=== PATIENT | male | born 1980 | race Caucasian/White ===

== ENCOUNTER 2021-03-27 11:51 | Inpatient (IN) | payer SELFPAY ==
[~2021-03-27] VITALS: Ht 182.9 cm; Wt 134.7 kg
[~2021-03-27 11:51] MED LIST: HUMULIN-R100 UNITS/ SQ; NOVOLIN 70100 UNITS/ SC; NOVOLIN N100 UNIT/1 SQ
[2021-03-27] MEDS ORDERED: SODIUM CHLORIDE 0.9% 1000ML 1,000 ML IV STA (12:23)
[2021-03-27 12:34] LABS: BASOPHILS # (AUTO) 0.1 (0.0-0.1); BASOPHILS % 0.5 % (0.0-1.0); EOSINOPHILS # (AUTO) 0.2 (0.0-0.4); HEMATOCRIT 44.1 % (38.2-49.6); HEMOGLOBIN 14.1 g/dL (14.0-18.0); LYMPHOCYTES # (AUTO) 1.7 (1.0-3.2); LYMPHOCYTES % 16.3 % (18.0-39.1); MEAN CORPUSCULAR HEMOGLOBIN 26.5 pg (28-32); MEAN CORPUSCULAR VOLUME 82.9 fL (81-99); MONOCYTES # (AUTO) 0.6 (0.2-0.8); NEUTROPHILS # (AUTO) 7.9 (2.1-6.9); NEUTROPHILS % 74.4 % (38.7-80.0); PLATELET COUNT 280 x10e3/uL (140-360); RED BLOOD COUNT 5.32 x10e6/uL (4.3-5.7); RED CELL DISTRIBUTION WIDTH 14.7 % (11.7-14.4)
[2021-03-27 12:58] LABS: ALBUMIN 3.3 g/dL (3.5-5.0); ALBUMIN/GLOBULIN RATIO 0.7 (0.8-2.0); ANION GAP 18.3 mmol/L (8-16); CALCIUM 8.9 mg/dL (8.4-10.2); CREATININE, SERUM 1.02 mg/dL (0.72-1.25); POTASSIUM 4.3 mmol/L (3.5-5.1)
[2021-03-27] MEDS ORDERED: PIPERACILLIN/TAZOBACTAM 3.375 GM in SODIUM CHLORIDE 0.9% 50ML 50 ML IV ONE (13:30)
[2021-03-27] MEDS ORDERED: Vancomycin IV 1 GM in SODIUM CHLORIDE 0.9% 250ML 250 ML IV ONE (13:45)
[2021-03-27 13:51] LABS: CLARITY,URINE CLEAR (CLEAR); COLOR,URINE YELLOW (YELLOW); KETONES,URINE 1+ (NEGATIVE); LEUKOCYTE ESTERASE ,URINE NEGATIVE (NEGATIVE); NITRITE,URINE NEGATIVE (NEGATIVE); PROTEIN,URINE DIPSTICK >=300 (NEGATIVE); URINE UROBILINOGEN 1 mg/dL (0.2 - 1)
[2021-03-27 14:04] LABS: BACTERIA,URINE RARE /HPF; RBC,URINE 0-5 /HPF (0-5)
[2021-03-27] MEDS ORDERED: MORPHINE SULFATE INJ 2 MG/ML SYR IV PRN (14:15)
[2021-03-27] MEDS ORDERED: ONDANSETRON HCL INJ 2MG/ML 2ML 2 MG/ML VIAL IV PRN (14:15)
[2021-03-27] MEDS: MORPHINE SULFATE INJ 4 MG/ML INJ 1ML IV PRN ×3 (14:41→23:12)
[2021-03-27] MEDS: SODIUM CHLORIDE 0.9% 1000ML 1,000 ML IV SCH ×2 (14:45→18:45)
[2021-03-27 16:53] VITALS: BP 141/77
[2021-03-27 17:15] VITALS: BP 141/77
[2021-03-27] MEDS ORDERED: METFORMIN HCL500 MG PO (18:11)
[2021-03-27] MEDS ORDERED: GLIPIZIDE5 MG PO (18:11)
[2021-03-27] MEDS ORDERED: ALPRAZOLAM0.5 MG PO (18:11)
[2021-03-27] MEDS ORDERED: NOVOLOG MI100 UNIT/1 SC (18:11)
[2021-03-27] MEDS ORDERED: DEXTROSE 50% SYRINGE 50 ML IV PRN (19:00)
[2021-03-27 20:00] VITALS: BP 129/80
[2021-03-27] MEDS ORDERED: ALPRAZOLAM 0.5 MG TAB PO SCH (21:00)
[2021-03-27] MEDS: PIPERACILLIN/TAZOBACTAM 3.375 GM in SODIUM CHLORIDE 0.9% 50ML 50 ML IV SCH (21:21)
[2021-03-27] MEDS ORDERED: Vancomycin IV 1 GM VIAL ONE (21:24)
[2021-03-27 21:52] VITALS: BP 129/80
[2021-03-27] MEDS: INSULIN LISPRO 100 UNIT/1 ML 3ML VIAL SQ SCH (22:01)
[2021-03-27] MEDS: Vancomycin IV 1 GM in SODIUM CHLORIDE 0.9% 250ML 250 ML IV SCH (22:12)
[2021-03-28] VITALS (7 sets, daily range): BP systolic 127–154; BP diastolic 76–85
[2021-03-28] MEDS: PIPERACILLIN/TAZOBACTAM 3.375 GM in SODIUM CHLORIDE 0.9% 50ML 50 ML IV SCH ×4 (03:34→22:05)
[2021-03-28] MEDS: MORPHINE SULFATE INJ 4 MG/ML INJ 1ML IV PRN ×5 (04:15→20:24)
[2021-03-28 04:57] LABS: BASOPHILS % 0.4 % (0.0-1.0); EOSINOPHILS # (AUTO) 0.2 (0.0-0.4); EOSINOPHILS % 2.1 % (0.0-6.0); HEMATOCRIT 37.9 % (38.2-49.6); HEMOGLOBIN 12.1 g/dL (14.0-18.0); LYMPHOCYTES # (AUTO) 2.3 (1.0-3.2); LYMPHOCYTES % 24.8 % (18.0-39.1); MEAN CORPUSCULAR HEMOGLOBIN 26.8 pg (28-32); MEAN CORPUSCULAR HGB CONC 31.9 g/dL (31-35); MONOCYTES # (AUTO) 0.6 (0.2-0.8); NEUTROPHILS % 65.3 % (38.7-80.0); PLATELET COUNT 246 x10e3/uL (140-360); RED BLOOD COUNT 4.51 x10e6/uL (4.3-5.7); RED CELL DISTRIBUTION WIDTH 14.6 % (11.7-14.4)
[2021-03-28 05:25] LABS: ALBUMIN 2.8 g/dL (3.5-5.0); ALBUMIN/GLOBULIN RATIO 0.8 (0.8-2.0); ANION GAP 15.2 mmol/L (8-16); CALCIUM 7.8 mg/dL (8.4-10.2); CREATININE, SERUM 0.87 mg/dL (0.72-1.25); POTASSIUM 4.2 mmol/L (3.5-5.1)
[2021-03-28] MEDS: INSULIN LISPRO 100 UNIT/1 ML 3ML VIAL SQ SCH ×4 (07:30→21:08)
[2021-03-28] MEDS: INSULIN ASPART 70/30 100 UNITS/ML VIAL SC SCH ×2 (07:30→16:35)
[2021-03-28] MEDS: SODIUM CHLORIDE 0.9% 1000ML 1,000 ML IV SCH ×2 (08:23→22:10)
[2021-03-28] MEDS ORDERED: ALPRAZOLAM 0.5 MG TAB PO SCH (09:00)
[2021-03-28] MEDS: Vancomycin IV 1 GM in SODIUM CHLORIDE 0.9% 250ML 250 ML IV SCH ×2 (10:00→23:18)
[2021-03-28] MEDS ORDERED: ONDANSETRON HCL INJ 2MG/ML 2ML 2 MG/ML VIAL ONE (13:04)
[2021-03-28] MEDS ORDERED: DEXAMETHASONE SOD PHOS INJ 4 MG/ML VIAL ONE (13:04)
[2021-03-28] MEDS ORDERED: LIDOCAINE HCL 2% LOCAL INJ 5 ML SDV VIAL INJ ONE (13:04)
[2021-03-28] MEDS ORDERED: PROPOFOL IV EMULSION 10 MG/ML 20 ML VIAL ONE (13:04)
[2021-03-28] MEDS ORDERED: POVIDONE IODINE 0.05% 0.05 % ML PO ONE (13:04)
[2021-03-28] MEDS ORDERED: SEVOFLURANE INHAL SOLN 250 ML PEN BTL ONE (13:04)
[2021-03-28] MEDS ORDERED: KETOROLAC TROMETHAMINE 30 MG/ML VIAL ONE (13:15)
[2021-03-28] MEDS ORDERED: FENTANYL CITRATE/PF 100MCG/2 ML INJ ONE (13:59)
[2021-03-28] MEDS ORDERED: MIDAZOLAM HCL 2 MG/2 ML VIAL ONE (13:59)
[2021-03-28] MEDS: BACITRACIN ZINC 15 GM OINT TOP SCH (17:49)
[2021-03-28] MEDS ORDERED: DEXTROSE 50% SYRINGE 50 ML IV PRN (20:00)
[2021-03-28] MEDS: ALPRAZOLAM 0.5 MG TAB PO SCH (22:07)
[2021-03-29] VITALS (7 sets, daily range): BP systolic 128–157; BP diastolic 69–88
[2021-03-29] MEDS: PIPERACILLIN/TAZOBACTAM 3.375 GM in SODIUM CHLORIDE 0.9% 50ML 50 ML IV SCH ×4 (02:29→19:58)
[2021-03-29] MEDS: MORPHINE SULFATE INJ 4 MG/ML INJ 1ML IV PRN ×4 (02:34→18:12)
[2021-03-29 05:42] LABS: BASOPHILS % 0.2 % (0.0-1.0); EOSINOPHILS # (AUTO) 0.1 (0.0-0.4); EOSINOPHILS % 0.4 % (0.0-6.0); HEMOGLOBIN 12.4 g/dL (14.0-18.0); LYMPHOCYTES # (AUTO) 1.5 (1.0-3.2); LYMPHOCYTES % 12.4 % (18.0-39.1); MEAN CORPUSCULAR HEMOGLOBIN 26.3 pg (28-32); MEAN CORPUSCULAR HGB CONC 31.8 g/dL (31-35); MEAN CORPUSCULAR VOLUME 82.6 fL (81-99); MONOCYTES # (AUTO) 0.7 (0.2-0.8); MONOCYTES % 5.8 % (4.4-11.3); NEUTROPHILS # (AUTO) 9.6 (2.1-6.9); NEUTROPHILS % 80.4 % (38.7-80.0); PLATELET COUNT 247 x10e3/uL (140-360); RED BLOOD COUNT 4.72 x10e6/uL (4.3-5.7); RED CELL DISTRIBUTION WIDTH 14.1 % (11.7-14.4)
[2021-03-29 06:07] LABS: ANION GAP 16.1 mmol/L (8-16); CALCIUM 7.8 mg/dL (8.4-10.2); CREATININE, SERUM 1.01 mg/dL (0.72-1.25); POTASSIUM 4.1 mmol/L (3.5-5.1)
[2021-03-29] MEDS: SODIUM CHLORIDE 0.9% 1000ML 1,000 ML IV SCH ×4 (06:15→22:15)
[2021-03-29] MEDS: METFORMIN HCL 500 MG TAB PO SCH ×2 (08:16→16:37)
[2021-03-29] MEDS: GLIPIZIDE 5 MG TAB PO SCH ×2 (08:17→16:37)
[2021-03-29] MEDS: INSULIN ASPART 70/30 100 UNITS/ML VIAL SC SCH ×2 (08:20→16:38)
[2021-03-29] MEDS: INSULIN LISPRO 100 UNIT/1 ML 3ML VIAL SQ SCH ×4 (08:20→20:41)
[2021-03-29] MEDS: BACITRACIN ZINC 15 GM OINT TOP SCH (08:21)
[2021-03-29] MEDS: ALPRAZOLAM 0.5 MG TAB PO SCH ×3 (08:21→22:31)
[2021-03-29] MEDS: Vancomycin IV 1 GM in SODIUM CHLORIDE 0.9% 250ML 250 ML IV SCH ×2 (11:06→22:31)
[2021-03-29] MEDS ORDERED: ONDANSETRON HCL 4 MG ORAL DISINTEGRATING TAB PO PRN (12:45)
[2021-03-29] MEDS ORDERED: CLEOCIN HCL300 MG PO (14:17)
[2021-03-30] VITALS: BP 151/86
[2021-03-30] MEDS: PIPERACILLIN/TAZOBACTAM 3.375 GM in SODIUM CHLORIDE 0.9% 50ML 50 ML IV SCH ×2 (01:17→09:05)
[2021-03-30] MEDS: MORPHINE SULFATE INJ 4 MG/ML INJ 1ML IV PRN ×2 (03:11→09:21)
[2021-03-30 04:00] VITALS: BP 131/83
[2021-03-30] MEDS: SODIUM CHLORIDE 0.9% 1000ML 1,000 ML IV SCH (04:57)
[2021-03-30] MEDS: INSULIN ASPART 70/30 100 UNITS/ML VIAL SC SCH (07:30)
[2021-03-30] MEDS: INSULIN LISPRO 100 UNIT/1 ML 3ML VIAL SQ SCH ×2 (07:30→11:30)
[2021-03-30 08:05] VITALS: BP 134/77
[2021-03-30 08:23] VITALS: BP 134/77
[2021-03-30] MEDS: METFORMIN HCL 500 MG TAB PO SCH (09:04)
[2021-03-30] MEDS: GLIPIZIDE 5 MG TAB PO SCH (09:05)
[2021-03-30] MEDS: BACITRACIN ZINC 15 GM OINT TOP SCH (09:05)
[2021-03-30] MEDS: Vancomycin IV 1 GM in SODIUM CHLORIDE 0.9% 250ML 250 ML IV SCH (10:08)
[2021-03-30 11:27] VITALS: BP 137/81
== END 2021-03-30 13:00 | disposition home or self-care (01) | DRG 581 ==
LOC: ER 12:53 → ERHOLD 14:01 → MED/SURG2 16:36
PROVIDERS: ADMIT Internal Medicine; ATTEND Internal Medicine
PROC: 0Y960ZZ Drainage of Left Inguinal Region, Open Approach (ICD-10-PCS; principal; 2021-03-28 12:03)
DX: L02.214 Cutaneous abscess of groin (principal); Z20.822 Contact with and (suspected) exposure to COVID-19; E11.22 Type 2 diabetes mellitus with diabetic chronic kidney disease; I12.9 Hypertensive chronic kidney disease with stage 1 through stage 4 chronic kidney disease, or unspecified chronic kidney disease; N18.30 Chronic kidney disease, stage 3 unspecified; Z79.899 Other long term (current) drug therapy; G47.33 Obstructive sleep apnea (adult) (pediatric)
CPT/HCPCS: 36415; 80048; 80053; 80202; 81001; 82948; 85025; 87040; 87071; 87075; 87086; 87205; 96372; 99251; 99284; J1100; J1815; J1885; J2001; J2250; J2270; J2405; J2543; J3010; J3370; J7030; J7050; U0002

== ENCOUNTER 2021-04-22 19:29 | Emergency (ER) | payer SELFPAY ==
[~2021-04-22] VITALS: Ht 182.9 cm; Wt 134.7 kg
[~2021-04-22 19:29] MED LIST changes: +ALPRAZOLAM0.5 MG PO; +CLEOCIN HCL300 MG PO; +GLIPIZIDE5 MG PO; +METFORMIN HCL500 MG PO; +NOVOLOG MI100 UNIT/1 SC
[2021-04-22] MEDS ORDERED: KETOROLAC TROMETHAMINE 30 MG/ML VIAL IV STA (20:56)
[2021-04-22] MEDS ORDERED: ACETAMINOPHEN 325 MG TAB PO ONE (21:00)
[2021-04-22] MEDS ORDERED: SODIUM CHLORIDE 0.9% 1000ML 1,000 ML IV SCH (21:00)
[2021-04-22 21:09] LABS: BASOPHILS % 0.4 % (0.0-1.0); EOSINOPHILS # (AUTO) 0.1 (0.0-0.4); EOSINOPHILS % 1.2 % (0.0-6.0); HEMATOCRIT 46.8 % (38.2-49.6); HEMOGLOBIN 14.9 g/dL (14.0-18.0); LYMPHOCYTES # (AUTO) 0.6 (1.0-3.2); LYMPHOCYTES % 6.5 % (18.0-39.1); MEAN CORPUSCULAR HEMOGLOBIN 26.3 pg (28-32); MEAN CORPUSCULAR HGB CONC 31.8 g/dL (31-35); MEAN CORPUSCULAR VOLUME 82.5 fL (81-99); MONOCYTES # (AUTO) 0.7 (0.2-0.8); MONOCYTES % 7.9 % (4.4-11.3); NEUTROPHILS # (AUTO) 7.7 (2.1-6.9); NEUTROPHILS % 83.5 % (38.7-80.0); PLATELET COUNT 246 x10e3/uL (140-360); RED BLOOD COUNT 5.67 x10e6/uL (4.3-5.7); RED CELL DISTRIBUTION WIDTH 14.7 % (11.7-14.4)
[2021-04-22 21:23] LABS: ALBUMIN 3.8 g/dL (3.5-5.0); ALBUMIN/GLOBULIN RATIO 0.8 (0.8-2.0); ANION GAP 16.1 mmol/L (8-16); CALCIUM 8.9 mg/dL (8.4-10.2); CREATININE, SERUM 1.2 mg/dL (0.72-1.25); POTASSIUM 5.1 mmol/L (3.5-5.1)
[2021-04-23 01:39] VITALS: BP 112/64
== END 2021-04-23 00:40 | disposition home or self-care (01) ==
LOC: ER 20:56
DX: R50.9 Fever, unspecified (principal); U07.1 COVID-19; E10.621 Type 1 diabetes mellitus with foot ulcer; L97.529 Non-pressure chronic ulcer of other part of left foot with unspecified severity; E10.40 Type 1 diabetes mellitus with diabetic neuropathy, unspecified; F41.9 Anxiety disorder, unspecified
CPT/HCPCS: 36415; 73620 ×2; 80053; 83605; 85025; 87040; 93970; 99284; J1885; J7030; U0002

== ENCOUNTER 2021-04-26 19:52 | Emergency (ER) | payer SELFPAY ==
[~2021-04-26] VITALS: Ht 182.9 cm; Wt 134.7 kg
[2021-04-26] MEDS ORDERED: IBUPROFEN 600 MG TAB PO STA (20:54)
== END 2021-04-26 21:00 | disposition home or self-care (01) ==
LOC: ER 20:51
DX: E10.621 Type 1 diabetes mellitus with foot ulcer (principal); L97.521 Non-pressure chronic ulcer of other part of left foot limited to breakdown of skin; Z79.4 Long term (current) use of insulin; U07.1 COVID-19
CPT/HCPCS: 99283

== ENCOUNTER 2021-10-04 19:42 | Emergency (ER) | payer SELFPAY ==
[~2021-10-04] VITALS: Ht 182.9 cm; Wt 134.7 kg
[2021-10-04] MEDS ORDERED: CEFPODOXIME PR200 MG PO (21:19)
[2021-10-04] MEDS ORDERED: METRONIDAZOLE500 MG PO (21:19)
[2021-10-04] MEDS ORDERED: LIDOCAINE HCL 1% LOCAL INJ 20 ML VIAL ONE (21:29)
[2021-10-04] MEDS ORDERED: LIDOCAINE HCL 1% LOCAL INJ 20 ML VIAL INJ ONE (21:30)
== END 2021-10-04 22:00 | disposition home or self-care (01) ==
LOC: ER 21:18
DX: L02.31 Cutaneous abscess of buttock (principal); E10.40 Type 1 diabetes mellitus with diabetic neuropathy, unspecified; F41.9 Anxiety disorder, unspecified
CPT/HCPCS: 10061; 99282; J2001

== ENCOUNTER 2022-04-01 19:44 | Emergency (ER) | payer SELFPAY ==
[~2022-04-01] VITALS: Ht 182.9 cm; Wt 134.7 kg
[~2022-04-01 19:44] MED LIST changes: +CEFPODOXIME PR200 MG PO; +METRONIDAZOLE500 MG PO
[2022-04-01] MEDS ORDERED: DOXYCYCLINE HY100 MG PO (20:32)
[2022-04-01] MEDS ORDERED: NAPROXEN250 MG PO ×2 (20:33→21:03)
[2022-04-01] MEDS ORDERED: LIDOCAINE HCL 1% LOCAL INJ 20 ML VIAL INJ ONE (20:45)
[2022-04-01] MEDS ORDERED: LIDOCAINE HCL 1% LOCAL INJ 20 ML VIAL ONE (20:54)
[2022-04-01] MEDS ORDERED: AMOX TR-K CLV1 EAC2 PO (21:03)
== END 2022-04-01 21:20 | disposition home or self-care (01) ==
LOC: ER 20:00
DX: L05.91 Pilonidal cyst without abscess (principal); R42 Dizziness and giddiness; E10.40 Type 1 diabetes mellitus with diabetic neuropathy, unspecified; F41.9 Anxiety disorder, unspecified
CPT/HCPCS: 73630; 99283; J2001

== ENCOUNTER 2022-07-16 18:14 | Inpatient (IN) | payer SELFPAY ==
[~2022-07-16] VITALS: Ht 182.9 cm; Wt 122.0 kg
[~2022-07-16 18:14] MED LIST changes: +AMOX TR-K CLV1 EAC2 PO; +DOXYCYCLINE HY100 MG PO; +NAPROXEN250 MG PO
[2022-07-16] MEDS ORDERED: ACETAMINOPHEN 325 MG TAB PO ONE (19:15)
[2022-07-16] MEDS ORDERED: ONDANSETRON HCL INJ 2MG/ML 2ML 2 MG/ML VIAL IV PRN ×2 (19:15→22:45)
[2022-07-16 19:21] LABS: BASOPHILS % 0.2 % (0.0-1.0); EOSINOPHILS # (AUTO) 0.2 (0.0-0.4); EOSINOPHILS % 1.2 % (0.0-6.0); HEMATOCRIT 45.8 % (38.2-49.6); HEMOGLOBIN 14.5 g/dL (14.0-18.0); LYMPHOCYTES # (AUTO) 1.8 (1.0-3.2); LYMPHOCYTES % 11.4 % (18.0-39.1); MEAN CORPUSCULAR HEMOGLOBIN 27.1 pg (28-32); MEAN CORPUSCULAR HGB CONC 31.7 g/dL (31-35); MEAN CORPUSCULAR VOLUME 85.6 fL (81-99); MONOCYTES % 6.4 % (4.4-11.3); NEUTROPHILS % 80.1 % (38.7-80.0); PLATELET COUNT 283 x10e3/uL (140-360); RED BLOOD COUNT 5.35 x10e6/uL (4.3-5.7); RED CELL DISTRIBUTION WIDTH 13.6 % (11.7-14.4)
[2022-07-16] MEDS ORDERED: Vancomycin IV 1 GM in SODIUM CHLORIDE 0.9% 250ML 250 ML IV SCH ×2 (19:30→22:45)
[2022-07-16] MEDS ORDERED: FENTANYL CITRATE/PF 100MCG/2 ML INJ IV SCH (20:00)
[2022-07-16 20:17] LABS: ALANINE AMINOTRANSFERASE 11 IU/L (0-55); ALBUMIN 3.7 g/dL (3.5-5.0); ALBUMIN/GLOBULIN RATIO 0.8 (0.8-2.0); ALKALINE PHOSPHATASE 94 IU/L (40-150); ANION GAP 19.5 mmol/L (8-16); BLOOD UREA NITROGEN 24 mg/dL (7-26); BUN/CREATININE RATIO 13 (6-25); CALCIUM 9.6 mg/dL (8.4-10.2); CARBON DIOXIDE 21 mmol/L (22-29); CHLORIDE 98 mmol/L (98-107); CREATININE, SERUM 1.85 mg/dL (0.72-1.25); GLUCOSE 351 mg/dL (74-118); POTASSIUM 4.5 mmol/L (3.5-5.1); SODIUM 134 mmol/L (136-145)
[2022-07-16] MEDS ORDERED: FENTANYL CITRATE/PF 100MCG/2 ML INJ IV PRN (20:30)
[2022-07-16] MEDS ORDERED: INSULIN LISPRO 100 UNIT/1 ML 3ML VIAL SQ ONE (20:45)
[2022-07-16] MEDS ORDERED: SODIUM CHLORIDE 0.9% 1000ML 1,000 ML IV ONE (20:45)
[2022-07-16 21:07] LABS: CLARITY,URINE SL CLOUDY (CLEAR); COLOR,URINE YELLOW (YELLOW); KETONES,URINE NEGATIVE (NEGATIVE); LEUKOCYTE ESTERASE ,URINE NEGATIVE (NEGATIVE); NITRITE,URINE NEGATIVE (NEGATIVE); PROTEIN,URINE DIPSTICK 2+ (NEGATIVE); URINE UROBILINOGEN 0.2 mg/dL (0.2 - 1)
[2022-07-16 21:18] LABS: AMORPHOUS SEDIMENT,URINE MODERATE (FEW); BACTERIA,URINE FEW /HPF; EPITHELIAL CELLS,URINE MANY /LPF
[2022-07-16] MEDS ORDERED: ACETAMINOPHEN 325 MG TAB PO PRN (22:45)
[2022-07-16] MEDS ORDERED: DEXTROSE 50% SYRINGE 50 ML IV PRN (22:45)
[2022-07-17] MEDS: SODIUM CHLORIDE 0.9% 1000ML 1,000 ML IV SCH ×3 (03:26→15:13)
[2022-07-17] MEDS: Morphine 4mg INJECTION 4 MG/ML INJ IV PRN ×4 (03:26→18:36)
[2022-07-17 06:24] LABS: BASOPHILS % 0.3 % (0.0-1.0); EOSINOPHILS # (AUTO) 0.3 (0.0-0.4); HEMATOCRIT 40.4 % (38.2-49.6); HEMOGLOBIN 12.5 g/dL (14.0-18.0); LYMPHOCYTES # (AUTO) 1.9 (1.0-3.2); LYMPHOCYTES % 14.7 % (18.0-39.1); MEAN CORPUSCULAR HEMOGLOBIN 26.8 pg (28-32); MEAN CORPUSCULAR HGB CONC 30.9 g/dL (31-35); MEAN CORPUSCULAR VOLUME 86.7 fL (81-99); MONOCYTES # (AUTO) 0.9 (0.2-0.8); MONOCYTES % 6.6 % (4.4-11.3); NEUTROPHILS # (AUTO) 9.7 (2.1-6.9); NEUTROPHILS % 75.8 % (38.7-80.0); PLATELET COUNT 219 x10e3/uL (140-360); RED BLOOD COUNT 4.66 x10e6/uL (4.3-5.7); RED CELL DISTRIBUTION WIDTH 13.2 % (11.7-14.4)
[2022-07-17 06:54] LABS: ALBUMIN 2.9 g/dL (3.5-5.0); ALBUMIN/GLOBULIN RATIO 0.8 (0.8-2.0); ANION GAP 15.1 mmol/L (8-16); CALCIUM 8.5 mg/dL (8.4-10.2); CREATININE, SERUM 1.22 mg/dL (0.72-1.25); POTASSIUM 4.1 mmol/L (3.5-5.1)
[2022-07-17] MEDS: INSULIN REGULAR, HUMAN 100 UNIT/1 ML SQ SCH ×4 (07:30→20:59)
[2022-07-17] MEDS ORDERED: BUPIVACAINE HCL 0.5% INJ 30 ML VIAL INJ ONE (11:34)
[2022-07-17] MEDS: Vancomycin IV 1 GM in SODIUM CHLORIDE 0.9% 250ML 250 ML IV SCH ×2 (11:39→21:52)
[2022-07-17] MEDS ORDERED: HYDROCODONE/APAP 7.5MG-325MG 1 EA TAB PO PRN (13:00)
[2022-07-17 14:10] VITALS: BP 116/70
[2022-07-17 15:27] VITALS: BP 116/70
[2022-07-17 19:56] VITALS: BP 151/75
[2022-07-17] MEDS: INSULIN ASPART 70/30 100 UNITS/ML VIAL SC SCH (20:58)
[2022-07-17 21:00] VITALS: BP 151/75
[2022-07-18] VITALS (7 sets, daily range): BP systolic 129–140; BP diastolic 64–75
[2022-07-18] MEDS: Morphine 4mg INJECTION 4 MG/ML INJ IV PRN ×3 (00:19→11:57)
[2022-07-18] MEDS: SODIUM CHLORIDE 0.9% 1000ML 1,000 ML IV SCH ×2 (00:20→09:21)
[2022-07-18 06:51] LABS: ANION GAP 14.2 mmol/L (8-16); CALCIUM 8.2 mg/dL (8.4-10.2); CREATININE, SERUM 1.16 mg/dL (0.72-1.25); POTASSIUM 4.2 mmol/L (3.5-5.1)
[2022-07-18 06:52] LABS: BASOPHILS % 0.4 % (0.0-1.0); EOSINOPHILS # (AUTO) 0.1 (0.0-0.4); EOSINOPHILS % 1.1 % (0.0-6.0); HEMOGLOBIN 11.5 g/dL (14.0-18.0); LYMPHOCYTES # (AUTO) 1.6 (1.0-3.2); LYMPHOCYTES % 14.6 % (18.0-39.1); MEAN CORPUSCULAR HEMOGLOBIN 26.9 pg (28-32); MEAN CORPUSCULAR HGB CONC 30.3 g/dL (31-35); MONOCYTES # (AUTO) 0.7 (0.2-0.8); NEUTROPHILS # (AUTO) 8.7 (2.1-6.9); NEUTROPHILS % 77.4 % (38.7-80.0); PLATELET COUNT 192 x10e3/uL (140-360); RED BLOOD COUNT 4.27 x10e6/uL (4.3-5.7); RED CELL DISTRIBUTION WIDTH 13.1 % (11.7-14.4)
[2022-07-18] MEDS: Vancomycin IV 1 GM in SODIUM CHLORIDE 0.9% 250ML 250 ML IV SCH (09:16)
[2022-07-18] MEDS: INSULIN ASPART 70/30 100 UNITS/ML VIAL SC SCH (09:17)
[2022-07-18] MEDS: INSULIN REGULAR, HUMAN 100 UNIT/1 ML SQ SCH ×3 (09:20→16:59)
[2022-07-18] MEDS ORDERED: HYDROCODON-ACE1 EA12 PO (17:14)
[2022-07-18] MEDS ORDERED: HUMULIN R100 UNIT/2 SQ (17:14)
[2022-07-18] MEDS ORDERED: ACETAMINOPHEN325 M1 PO (17:14)
[2022-07-18] MEDS ORDERED: BACTRIM DS TAB1 EACH PO (17:14)
[2022-07-18] MEDS ORDERED: ONDANSETRON HCL 4 MG ORAL DISINTEGRATING TAB PO PRN (18:45)
[2022-07-18] MEDS ORDERED: POVIDONE IODINE 0.05% 0.05 % ML PO ONE (19:53)
[2022-07-18] MEDS ORDERED: SUCCINYLCHOLINE 200 MG/10 ML SYR IV ONE (19:53)
[2022-07-18] MEDS ORDERED: DEXAMETHASONE SOD PHOS INJ 4 MG/ML SDV IV ONE (19:53)
[2022-07-18] MEDS ORDERED: ONDANSETRON HCL INJ 2MG/ML 2ML 2 MG/ML VIAL IV ONE (19:53)
[2022-07-18] MEDS ORDERED: LIDOCAINE HCL 2% LOCAL INJ 5 ML SDV VIAL INJ ONE (19:53)
[2022-07-18] MEDS ORDERED: SEVOFLURANE INHAL SOLN 250 ML PEN BTL INH ONE (19:53)
[2022-07-18] MEDS ORDERED: PROPOFOL IV EMULSION 10 MG/ML 20 ML VIAL IV ONE (19:53)
[2022-07-18] MEDS ORDERED: METOCLOPRAMIDE HCL 10 MG/2ML VIAL IV ONE (19:53)
[2022-07-18] MEDS ORDERED: INSULIN ASPART 70/30 100 UNITS/ML VIAL SC SCH (20:00)
== END 2022-07-18 19:54 | disposition home or self-care (01) | DRG 854 ==
LOC: ER 19:24 → ERHOLD 22:34 → PACU V 07-17 13:40 → MED/SURG3 07-17 13:45
PROVIDERS: ADMIT Internal Medicine; ATTEND Internal Medicine
PROC: 3E03329 Introduction of Other Anti-infective into Peripheral Vein, Percutaneous Approach (ICD-10-PCS; 2022-07-16)
PROC: 0D9Q0ZZ Drainage of Anus, Open Approach (ICD-10-PCS; principal; 2022-07-17 12:33)
DX: A41.9 Sepsis, unspecified organism (principal); E87.1 Hypo-osmolality and hyponatremia; L02.215 Cutaneous abscess of perineum; L03.315 Cellulitis of perineum; N17.9 Acute kidney failure, unspecified; Z68.41 Body mass index [BMI] 40.0-44.9, adult; L02.31 Cutaneous abscess of buttock; R65.20 Severe sepsis without septic shock; N49.2 Inflammatory disorders of scrotum; E66.01 Morbid (severe) obesity due to excess calories; E11.65 Type 2 diabetes mellitus with hyperglycemia; Z79.4 Long term (current) use of insulin; E11.40 Type 2 diabetes mellitus with diabetic neuropathy, unspecified
CPT/HCPCS: 0223U; 36415; 71045; 74176; 80048; 80053; 81001; 82948; 83605; 85025; 87040; 87071; 87075; 87205; 93005; 94799; 99251; 99284; J1100; J1815; J1817; J2001; J2270; J2405; J2543; J2765; J3010; J3370; J7030; J7050

== ENCOUNTER 2022-09-14 01:59 | Inpatient (IN) | payer SELFPAY ==
[2022-09-14] VITALS (30 sets, daily range): BP systolic 88–136; BP diastolic 56–93
[~2022-09-14] VITALS: Ht 182.9 cm; Wt 128.4 kg
[~2022-09-14 01:59] MED LIST changes: +ACETAMINOPHEN325 M1 PO; +BACTRIM DS TAB1 EACH PO; +HUMULIN R100 UNIT/2 SQ; +HYDROCODON-ACE1 EA12 PO
[2022-09-14] MEDS ORDERED: SODIUM CHLORIDE 0.9% 1000ML 1,000 ML IV SCH ×3 (02:15→06:30)
[2022-09-14] MEDS ORDERED: ONDANSETRON HCL INJ 2MG/ML 2ML 2 MG/ML VIAL IV STA (02:16)
[2022-09-14 02:17] LABS: BASOPHILS # (AUTO) 0.1 (0.0-0.1); BASOPHILS % 0.4 % (0.0-1.0); EOSINOPHILS # (AUTO) 0.2 (0.0-0.4); EOSINOPHILS % 1.7 % (0.0-6.0); HEMATOCRIT 44.8 % (38.2-49.6); HEMOGLOBIN 13.7 g/dL (14.0-18.0); LYMPHOCYTES # (AUTO) 2.6 (1.0-3.2); LYMPHOCYTES % 22.5 % (18.0-39.1); MEAN CORPUSCULAR HEMOGLOBIN 27.1 pg (28-32); MEAN CORPUSCULAR HGB CONC 30.6 g/dL (31-35); MEAN CORPUSCULAR VOLUME 88.5 fL (81-99); MONOCYTES # (AUTO) 0.6 (0.2-0.8); MONOCYTES % 5.3 % (4.4-11.3); NEUTROPHILS # (AUTO) 8.1 (2.1-6.9); NEUTROPHILS % 69.7 % (38.7-80.0); PLATELET COUNT 325 x10e3/uL (140-360); RED BLOOD COUNT 5.06 x10e6/uL (4.3-5.7); RED CELL DISTRIBUTION WIDTH 14.4 % (11.7-14.4)
[2022-09-14 02:35] LABS: ALBUMIN 3.7 g/dL (3.5-5.0); ALBUMIN/GLOBULIN RATIO 0.9 (0.8-2.0); CALCIUM 9.1 mg/dL (8.4-10.2); CREATININE, SERUM 1.37 mg/dL (0.72-1.25)
[2022-09-14 03:44] LABS: SALICYLATE < 5.0 mg/dL (0-30)
[2022-09-14 04:26] LABS: CLARITY,URINE CLEAR (CLEAR); COLOR,URINE YELLOW (YELLOW); KETONES,URINE TRACE (NEGATIVE); LEUKOCYTE ESTERASE ,URINE NEGATIVE (NEGATIVE); NITRITE,URINE NEGATIVE (NEGATIVE); PROTEIN,URINE DIPSTICK >=300 (NEGATIVE); URINE UROBILINOGEN 0.2 mg/dL (0.2 - 1)
[2022-09-14 04:30] LABS: AMPHETAMINES SCREEN,URINE NEGATIVE (NEGATIVE); BENZODIAZEPINES SCREEN,URINE NEGATIVE (NEGATIVE); PHENCYCLIDINE SCREEN,URINE NEGATIVE (NEGATIVE)
[2022-09-14 04:32] LABS: BACTERIA,URINE FEW /HPF; EPITHELIAL CELLS,URINE FEW /LPF; MUCUS,URINE MANY (RARE); RBC,URINE 0-5 /HPF (0-5); WBC,URINE (MAN) 0-5 /HPF (0-5)
[2022-09-14] MEDS ORDERED: NALOXONE HCL 2MG/2 ML SYRINGE ONE (04:45)
[2022-09-14] MEDS ORDERED: VASOPRESSIN 60 UNIT in DEXTROSE 5% 50ML 57 ML IV PRN (06:30)
[2022-09-14] MEDS ORDERED: DEXTROSE 50% SYRINGE 50 ML IV PRN (07:45)
[2022-09-14 08:56] LABS: CREATINE KINASE MB 1.8 ng/mL (0-5.0)
[2022-09-14] MEDS: INSULIN REGULAR, HUMAN 100 UNIT/1 ML SQ SCH ×3 (11:34→21:36)
[2022-09-14 11:44] LABS: ABG HCO3 22 mmol/L (22-26); ABG PCO2 38 mmHg (35-45); ABG PH 7.37 (7.35-7.45); ABG PO2 136 mmHg (80-105); ABG TCO2 23
[2022-09-14 11:46] LABS: ABG HCO3 21 mmol/L (22-26); ABG PCO2 37 mmHg (35-45); ABG PH 7.37 (7.35-7.45); ABG PO2 148 mmHg (80-105); ABG TCO2 22
[2022-09-14] MEDS ORDERED: EPINEPHRINE HCL SYRINGE ONE (12:46)
[2022-09-14 15:04] LABS: CREATINE KINASE MB 1.1 ng/mL (0-5.0)
[2022-09-14] MEDS: PROPOFOL IV EMULSION 10MG/ML 100 ML IV PRN ×3 (19:12→23:45)
[2022-09-14] MEDS ORDERED: SODIUM CHLORIDE 0.45% 1,000 ML IV ONE (20:10)
[2022-09-14] MEDS ORDERED: ACETAMINOPHEN 1000 MG/100 ML IV ONE (22:00)
[2022-09-14 23:12] LABS: CREATINE KINASE MB 1.6 ng/mL (0-5.0)
[2022-09-14 23:26] LABS: CLARITY,URINE CLOUDY (CLEAR); COLOR,URINE YELLOW (YELLOW); KETONES,URINE NEGATIVE (NEGATIVE); LEUKOCYTE ESTERASE ,URINE NEGATIVE (NEGATIVE); NITRITE,URINE NEGATIVE (NEGATIVE); PROTEIN,URINE DIPSTICK 2+ (NEGATIVE); URINE UROBILINOGEN 0.2 mg/dL (0.2 - 1)
[2022-09-14 23:36] LABS: BACTERIA,URINE FEW /HPF; EPITHELIAL CELLS,URINE FEW /LPF; RBC,URINE >50 /HPF (0-5)
[2022-09-15] VITALS (28 sets, daily range): BP systolic 104–162; BP diastolic 63–100
[2022-09-15] MEDS: PROPOFOL IV EMULSION 10MG/ML 100 ML IV PRN ×3 (02:22→07:01)
[2022-09-15] MEDS: INSULIN REGULAR, HUMAN 100 UNIT/1 ML SQ SCH ×4 (07:30→20:18)
[2022-09-15 08:13] LABS: BASOPHILS % 0.2 % (0.0-1.0); EOSINOPHILS # (AUTO) 0.1 (0.0-0.4); EOSINOPHILS % 0.6 % (0.0-6.0); HEMATOCRIT 41.5 % (38.2-49.6); LYMPHOCYTES # (AUTO) 1.6 (1.0-3.2); MEAN CORPUSCULAR HEMOGLOBIN 26.4 pg (28-32); MEAN CORPUSCULAR HGB CONC 28.9 g/dL (31-35); MEAN CORPUSCULAR VOLUME 91.4 fL (81-99); NEUTROPHILS # (AUTO) 11.5 (2.1-6.9); NEUTROPHILS % 80.6 % (38.7-80.0); PLATELET COUNT 188 x10e3/uL (140-360); RED BLOOD COUNT 4.54 x10e6/uL (4.3-5.7); RED CELL DISTRIBUTION WIDTH 15.1 % (11.7-14.4)
[2022-09-15 08:24] LABS: ALBUMIN 3.1 g/dL (3.5-5.0); ALBUMIN/GLOBULIN RATIO 0.9 (0.8-2.0); ANION GAP 17.2 mmol/L (8-16); CALCIUM 8.3 mg/dL (8.4-10.2); CREATININE, SERUM 1.79 mg/dL (0.72-1.25); POTASSIUM 4.2 mmol/L (3.5-5.1)
[2022-09-15] MEDS ORDERED: KETOROLAC TROMETHAMINE 30 MG/ML VIAL IV ONE (11:00)
[2022-09-15] MEDS ORDERED: LACTATED RINGER'S 1,000 ML INJ ONE (15:45)
[2022-09-16] VITALS (23 sets, daily range): BP systolic 138–183; BP diastolic 26–102
[2022-09-16] MEDS: CLONIDINE HCL 0.2 MG TAB PO PRN ×2 (02:57→12:10)
[2022-09-16] MEDS: HYDROCODONE/APAP 7.5MG-325MG 1 EA TAB PO PRN ×2 (04:38→15:55)
[2022-09-16] MEDS ORDERED: HYDRALAZINE HCL 20 MG/ML VIAL IV ONE (06:45)
[2022-09-16 07:41] LABS: BASOPHILS % 0.3 % (0.0-1.0); EOSINOPHILS # (AUTO) 0.1 (0.0-0.4); EOSINOPHILS % 1.1 % (0.0-6.0); HEMATOCRIT 40.5 % (38.2-49.6); HEMOGLOBIN 11.9 g/dL (14.0-18.0); LYMPHOCYTES # (AUTO) 1.5 (1.0-3.2); LYMPHOCYTES % 12.4 % (18.0-39.1); MEAN CORPUSCULAR HEMOGLOBIN 26.7 pg (28-32); MEAN CORPUSCULAR HGB CONC 29.4 g/dL (31-35); MEAN CORPUSCULAR VOLUME 90.8 fL (81-99); MONOCYTES # (AUTO) 0.8 (0.2-0.8); MONOCYTES % 6.2 % (4.4-11.3); NEUTROPHILS # (AUTO) 9.7 (2.1-6.9); NEUTROPHILS % 79.6 % (38.7-80.0); PLATELET COUNT 187 x10e3/uL (140-360); RED BLOOD COUNT 4.46 x10e6/uL (4.3-5.7); RED CELL DISTRIBUTION WIDTH 14.5 % (11.7-14.4)
[2022-09-16 08:12] LABS: ALBUMIN 2.9 g/dL (3.5-5.0); ALBUMIN/GLOBULIN RATIO 0.8 (0.8-2.0); ANION GAP 14.3 mmol/L (8-16); CALCIUM 8.5 mg/dL (8.4-10.2); CREATININE, SERUM 1.02 mg/dL (0.72-1.25); POTASSIUM 4.3 mmol/L (3.5-5.1)
[2022-09-16] MEDS: INSULIN REGULAR, HUMAN 100 UNIT/1 ML SQ SCH ×4 (08:41→20:55)
[2022-09-16] MEDS ORDERED: LABETALOL HCL 5 MG/ML 20ML VIAL IV PRN (15:15)
[2022-09-16] MEDS ORDERED: INSULIN GLARGINE 100 UNITS/ML VIAL SQ SCH (21:00)
[2022-09-17] VITALS (30 sets, daily range): BP systolic 129–186; BP diastolic 65–126
[2022-09-17] MEDS: INSULIN REGULAR, HUMAN 100 UNIT/1 ML SQ SCH ×4 (07:23→21:06)
[2022-09-17] MEDS: HYDROCODONE/APAP 7.5MG-325MG 1 EA TAB PO PRN (07:46)
[2022-09-17] MEDS: LOSARTAN POTASSIUM 100 MG TAB PO SCH (09:33)
[2022-09-17 12:41] LABS: BASOPHILS % 0.3 % (0.0-1.0); EOSINOPHILS # (AUTO) 0.2 (0.0-0.4); EOSINOPHILS % 1.6 % (0.0-6.0); HEMATOCRIT 39.1 % (38.2-49.6); HEMOGLOBIN 11.6 g/dL (14.0-18.0); LYMPHOCYTES # (AUTO) 1.4 (1.0-3.2); LYMPHOCYTES % 12.1 % (18.0-39.1); MEAN CORPUSCULAR HEMOGLOBIN 26.6 pg (28-32); MEAN CORPUSCULAR HGB CONC 29.7 g/dL (31-35); MEAN CORPUSCULAR VOLUME 89.7 fL (81-99); MONOCYTES # (AUTO) 0.7 (0.2-0.8); MONOCYTES % 6.3 % (4.4-11.3); NEUTROPHILS # (AUTO) 9.3 (2.1-6.9); NEUTROPHILS % 79.3 % (38.7-80.0); PLATELET COUNT 230 x10e3/uL (140-360); RED BLOOD COUNT 4.36 x10e6/uL (4.3-5.7); RED CELL DISTRIBUTION WIDTH 14.4 % (11.7-14.4)
[2022-09-17 12:55] LABS: ALBUMIN 2.8 g/dL (3.5-5.0); ALBUMIN/GLOBULIN RATIO 0.7 (0.8-2.0); ANION GAP 16.4 mmol/L (8-16); CREATININE, SERUM 1.03 mg/dL (0.72-1.25); POTASSIUM 4.4 mmol/L (3.5-5.1)
[2022-09-17] MEDS ORDERED: CARVEDILOL 3.125 MG TAB PO ONE (14:30)
[2022-09-17] MEDS ORDERED: LOSARTAN POTASSIUM 100 MG TAB PO SCH (15:30)
[2022-09-17] MEDS ORDERED: INSULIN GLARGINE 100 UNITS/ML VIAL SQ SCH (21:00)
[2022-09-17] MEDS ORDERED: CARVEDILOL 3.125 MG TAB PO SCH (21:00)
[2022-09-18] VITALS (9 sets, daily range): BP systolic 150–187; BP diastolic 81–96
[2022-09-18] MEDS: INSULIN REGULAR, HUMAN 100 UNIT/1 ML SQ SCH ×2 (07:22→11:15)
[2022-09-18] MEDS: LOSARTAN POTASSIUM 100 MG TAB PO SCH (08:56)
[2022-09-18] MEDS ORDERED: CARVEDILOL 3.125 MG TAB PO SCH (09:00)
[2022-09-18] MEDS ORDERED: COREG3.125 MG PO (11:50)
[2022-09-18] MEDS ORDERED: CLONIDINE HCL0.2 MG PO (11:50)
[2022-09-18] MEDS ORDERED: COZAAR100 MG PO (11:50)
[2022-09-18] MEDS ORDERED: CEPACOL SORE T1 EAC5 PO (11:50)
[2022-10-02 10:49] LABS: ABG PH 7.19 (7.35-7.45)
[2022-10-02 10:50] LABS: ABG HCO3 27 mmol/L (22-26); ABG PCO2 71 mmHg (35-45); ABG PO2 75 mmHg (80-105); ABG TCO2 29
== END 2022-09-18 12:45 | disposition home or self-care (01) | DRG 917 ==
LOC: ER 02:06 → ICU 05:59
PROVIDERS: ADMIT Internal Medicine; ATTEND Internal Medicine
PROC: 0BH17EZ Insertion of Endotracheal Airway into Trachea, Via Natural or Artificial Opening (ICD-10-PCS; principal; 2022-09-14)
PROC: 5A1945Z Respiratory Ventilation, 24-96 Consecutive Hours (ICD-10-PCS; 2022-09-14)
DX: T42.8X2A Poisoning by antiparkinsonism drugs and other central muscle-tone depressants, intentional self-harm, initial encounter (principal); I46.9 Cardiac arrest, cause unspecified; J96.01 Acute respiratory failure with hypoxia; M96.A3 Multiple fractures of ribs associated with chest compression and cardiopulmonary resuscitation; N17.9 Acute kidney failure, unspecified; E87.20 Acidosis, unspecified; Y84.8 Other medical procedures as the cause of abnormal reaction of the patient, or of later complication, without mention of misadventure at the time of the procedure; F41.9 Anxiety disorder, unspecified; F32.A Depression, unspecified; Z20.822 Contact with and (suspected) exposure to COVID-19; E11.9 Type 2 diabetes mellitus without complications; E11.69 Type 2 diabetes mellitus with other specified complication; E78.5 Hyperlipidemia, unspecified
CPT/HCPCS: 36415; 36600; 70450; 71045; 71250; 76770; 80053; 80307; 80320; 80329; 81001; 82550; 82553; 82805; 82948; 83036; 83605; 83880; 84484; 85025; 87040; 93005; 93306; 94003; 94799; 96372; 99251; 99284; J0171; J0360; J0456; J0696; J1815; J1817; J1885; J2310; J2405; J7030; J7050; J7121

== ENCOUNTER 2022-12-07 16:42 | Inpatient (IN) | payer SELFPAY ==
[~2022-12-07] VITALS: Ht 182.9 cm; Wt 128.4 kg
[~2022-12-07 16:42] MED LIST changes: +CEPACOL SORE T1 EAC5 PO; +CLONIDINE HCL0.2 MG PO; +COREG3.125 MG PO; +COZAAR100 MG PO
[2022-12-07] MEDS ORDERED: Morphine 4mg INJECTION 4 MG/ML INJ IV STA (17:09)
[2022-12-07] MEDS ORDERED: ONDANSETRON HCL INJ 2MG/ML 2ML 2 MG/ML VIAL IV STA (17:09)
[2022-12-07] MEDS ORDERED: SODIUM CHLORIDE 0.9% 1000ML 1,000 ML IV STA ×2 (17:09→18:25)
[2022-12-07] MEDS ORDERED: Vancomycin IV 1 GM in SODIUM CHLORIDE 0.9% 250ML 250 ML IV ONE (17:15)
[2022-12-07 17:48] LABS: BASOPHILS # (AUTO) 0.1 (0.0-0.1); BASOPHILS % 0.3 % (0.0-1.0); EOSINOPHILS # (AUTO) 0.3 (0.0-0.4); EOSINOPHILS % 2.1 % (0.0-6.0); HEMATOCRIT 41.2 % (38.2-49.6); HEMOGLOBIN 13.1 g/dL (14.0-18.0); LYMPHOCYTES # (AUTO) 1.5 (1.0-3.2); LYMPHOCYTES % 10.1 % (18.0-39.1); MEAN CORPUSCULAR HEMOGLOBIN 26.6 pg (28-32); MEAN CORPUSCULAR HGB CONC 31.8 g/dL (31-35); MEAN CORPUSCULAR VOLUME 83.6 fL (81-99); MONOCYTES # (AUTO) 0.7 (0.2-0.8); MONOCYTES % 4.8 % (4.4-11.3); NEUTROPHILS # (AUTO) 12.4 (2.1-6.9); NEUTROPHILS % 82.1 % (38.7-80.0); PLATELET COUNT 293 x10e3/uL (140-360); RED BLOOD COUNT 4.93 x10e6/uL (4.3-5.7); RED CELL DISTRIBUTION WIDTH 13.2 % (11.7-14.4)
[2022-12-07 18:03] LABS: INR 0.97; PROTHROMBIN TIME 13.4 seconds (11.9-14.5)
[2022-12-07 18:04] LABS: PARTIAL THROMBOPLASTIN TIME 29.6 seconds (23.8-35.5)
[2022-12-07 18:14] LABS: ALANINE AMINOTRANSFERASE 9 IU/L (0-55); ALBUMIN 3.1 g/dL (3.5-5.0); ALBUMIN/GLOBULIN RATIO 0.7 (0.8-2.0); ALKALINE PHOSPHATASE 111 IU/L (40-150); ANION GAP 16.2 mmol/L (8-16); BLOOD UREA NITROGEN 18 mg/dL (7-26); BUN/CREATININE RATIO 13 (6-25); CALCIUM 9.4 mg/dL (8.4-10.2); CARBON DIOXIDE 22 mmol/L (22-29); CHLORIDE 100 mmol/L (98-107); CREATINE KINASE 53 IU/L (30-200); CREATININE, SERUM 1.43 mg/dL (0.72-1.25); MAGNESIUM 1.8 MG/DL (1.3-2.1); POTASSIUM 4.2 mmol/L (3.5-5.1); SODIUM 134 mmol/L (136-145)
[2022-12-07 18:16] LABS: GLUCOSE 495 mg/dL (74-118)
[2022-12-07] MEDS ORDERED: INSULIN REGULAR, HUMAN 100 UNIT/1 ML IV ONE (18:30)
[2022-12-07] MEDS ORDERED: IOPAMIDOL 370 MG/ML 100 ML INFUS..BTL INJ ONE (18:34)
[2022-12-07] MEDS ORDERED: ONDANSETRON HCL INJ 2MG/ML 2ML 2 MG/ML VIAL IV PRN (19:30)
[2022-12-07] MEDS ORDERED: DEXTROSE 50% SYRINGE 50 ML IV PRN (19:30)
[2022-12-07] MEDS: SODIUM CHLORIDE 0.9% 1000ML 1,000 ML IV STA ×2 (19:33→20:20)
[2022-12-07 20:21] LABS: CLARITY,URINE CLEAR (CLEAR); COLOR,URINE YELLOW (YELLOW); KETONES,URINE NEGATIVE (NEGATIVE); LEUKOCYTE ESTERASE ,URINE NEGATIVE (NEGATIVE); NITRITE,URINE NEGATIVE (NEGATIVE); PROTEIN,URINE DIPSTICK 2+ (NEGATIVE); URINE UROBILINOGEN 0.2 mg/dL (0.2 - 1)
[2022-12-07 20:22] LABS: AMPHETAMINES SCREEN,URINE NEGATIVE (NEGATIVE); BENZODIAZEPINES SCREEN,URINE NEGATIVE (NEGATIVE); PHENCYCLIDINE SCREEN,URINE NEGATIVE (NEGATIVE)
[2022-12-07 20:23] VITALS: BP 150/87
[2022-12-07 20:38] LABS: BACTERIA,URINE FEW /HPF; EPITHELIAL CELLS,URINE FEW /LPF; RBC,URINE 0-5 /HPF (0-5); WBC,URINE (MAN) 0-5 /HPF (0-5)
[2022-12-07] MEDS ORDERED: MELATONIN 3 MG TAB PO PRN (21:45)
[2022-12-07] MEDS ORDERED: DOCUSATE SODIUM 100 MG CAP PO PRN (21:45)
[2022-12-07] MEDS ORDERED: ACETAMINOPHEN 325 MG TAB PO PRN (21:45)
[2022-12-07] MEDS ORDERED: SIMETHICONE 80 MG CHEW PO PRN (21:45)
[2022-12-07 22:05] LABS: CHOL/HDL RATIO 6.3 (3.9-4.7)
[2022-12-07] MEDS: Morphine 4mg INJECTION 4 MG/ML INJ IV PRN (22:32)
[2022-12-07] MEDS: CARVEDILOL 3.125 MG TAB PO SCH (23:01)
[2022-12-07] MEDS: INSULIN GLARGINE 100 UNITS/ML VIAL SQ SCH (23:14)
[2022-12-07] MEDS: SODIUM CHLORIDE 0.9% 1000ML 1,000 ML IV SCH (23:14)
[2022-12-08] VITALS (9 sets, daily range): BP systolic 116–150; BP diastolic 66–76
[2022-12-08] MEDS: Morphine 4mg INJECTION 4 MG/ML INJ IV PRN ×2 (02:47→06:55)
[2022-12-08] MEDS: Vancomycin IV 1 GM in SODIUM CHLORIDE 0.9% 250ML 250 ML IV SCH ×2 (04:09→17:08)
[2022-12-08 05:24] LABS: BASOPHILS # (AUTO) 0.1 (0.0-0.1); BASOPHILS % 0.4 % (0.0-1.0); EOSINOPHILS # (AUTO) 0.3 (0.0-0.4); EOSINOPHILS % 2.1 % (0.0-6.0); LYMPHOCYTES # (AUTO) 1.4 (1.0-3.2); LYMPHOCYTES % 10.2 % (18.0-39.1); MEAN CORPUSCULAR HEMOGLOBIN 26.4 pg (28-32); MEAN CORPUSCULAR HGB CONC 31.4 g/dL (31-35); MEAN CORPUSCULAR VOLUME 83.9 fL (81-99); MONOCYTES # (AUTO) 0.8 (0.2-0.8); MONOCYTES % 5.8 % (4.4-11.3); NEUTROPHILS # (AUTO) 10.9 (2.1-6.9); NEUTROPHILS % 80.9 % (38.7-80.0); PLATELET COUNT 259 x10e3/uL (140-360); RED BLOOD COUNT 4.17 x10e6/uL (4.3-5.7); RED CELL DISTRIBUTION WIDTH 13.1 % (11.7-14.4)
[2022-12-08] MEDS: SODIUM CHLORIDE 0.9% 1000ML 1,000 ML IV SCH ×3 (05:38→20:37)
[2022-12-08] MEDS: INSULIN LISPRO 100 UNIT/1 ML 3ML VIAL SQ SCH ×4 (06:00→18:18)
[2022-12-08 06:08] LABS: ALBUMIN 2.6 g/dL (3.5-5.0); ALBUMIN/GLOBULIN RATIO 0.7 (0.8-2.0); ANION GAP 12.2 mmol/L (8-16); CALCIUM 8.5 mg/dL (8.4-10.2); CREATININE, SERUM 0.91 mg/dL (0.72-1.25); POTASSIUM 4.2 mmol/L (3.5-5.1)
[2022-12-08] MEDS ORDERED: HYDROMORPHONE 2MG/ML 2 MG/ML ML IV PRN (07:30)
[2022-12-08] MEDS ORDERED: HYDROMORPHONE 1MG/1ML INJ IV PRN (07:30)
[2022-12-08] MEDS: LOSARTAN POTASSIUM 100 MG TAB PO SCH (08:02)
[2022-12-08] MEDS: CARVEDILOL 3.125 MG TAB PO SCH ×3 (08:02→21:00)
[2022-12-08] MEDS ORDERED: POVIDONE IODINE 0.05% 0.05 % ML PO ONE (12:11)
[2022-12-08] MEDS ORDERED: PROPOFOL IV EMULSION 10 MG/ML 20 ML VIAL ONE (12:11)
[2022-12-08] MEDS ORDERED: LIDOCAINE HCL 2% LOCAL INJ 5 ML SDV VIAL INJ ONE (12:11)
[2022-12-08] MEDS ORDERED: ONDANSETRON HCL INJ 2MG/ML 2ML 2 MG/ML VIAL ONE (12:11)
[2022-12-08] MEDS ORDERED: LIDOCAINE JELLY 2% 10ML URO-JET ONE (12:13)
[2022-12-08] MEDS ORDERED: BUPIVACAINE 0.5%/EPI 30 ML SDV INJ ONE (12:13)
[2022-12-08] MEDS ORDERED: LIDOCAINE HCL 1% 30ML-PF VIAL ONE (12:16)
[2022-12-08] MEDS ORDERED: HYDROCODONE/APAP 7.5MG-325MG 1 EA TAB PO PRN (12:45)
[2022-12-08] MEDS: PIPERACILLIN/TAZOBACTAM 3.375 GM VIAL ONE ×2 (13:08→13:41)
[2022-12-08] MEDS ORDERED: FENTANYL CITRATE/PF 100MCG/2 ML INJ ONE ×2 (13:10→13:40)
[2022-12-08] MEDS ORDERED: MIDAZOLAM HCL 2 MG/2 ML VIAL ONE (13:40)
[2022-12-08] MEDS: HYDROMORPHONE 1MG/1ML INJ IV PRN ×3 (13:45→20:48)
[2022-12-08] MEDS: INSULIN GLARGINE 100 UNITS/ML VIAL SQ SCH (20:43)
[2022-12-09] VITALS (8 sets, daily range): BP systolic 118–141; BP diastolic 70–83
[2022-12-09] MEDS: INSULIN LISPRO 100 UNIT/1 ML 3ML VIAL SQ SCH ×5 (00:44→21:55)
[2022-12-09] MEDS: HYDROMORPHONE 1MG/1ML INJ IV PRN ×7 (00:50→21:59)
[2022-12-09] MEDS: SODIUM CHLORIDE 0.9% 1000ML 1,000 ML IV SCH ×3 (03:30→22:00)
[2022-12-09 04:54] LABS: BASOPHILS # (AUTO) 0.1 (0.0-0.1); BASOPHILS % 0.4 % (0.0-1.0); EOSINOPHILS # (AUTO) 0.4 (0.0-0.4); EOSINOPHILS % 3.1 % (0.0-6.0); HEMATOCRIT 31.9 % (38.2-49.6); HEMOGLOBIN 9.9 g/dL (14.0-18.0); LYMPHOCYTES # (AUTO) 2.1 (1.0-3.2); LYMPHOCYTES % 15.7 % (18.0-39.1); MEAN CORPUSCULAR HEMOGLOBIN 26.4 pg (28-32); MEAN CORPUSCULAR VOLUME 85.1 fL (81-99); MONOCYTES # (AUTO) 0.7 (0.2-0.8); MONOCYTES % 5.5 % (4.4-11.3); NEUTROPHILS # (AUTO) 9.7 (2.1-6.9); NEUTROPHILS % 74.4 % (38.7-80.0); PLATELET COUNT 228 x10e3/uL (140-360); RED BLOOD COUNT 3.75 x10e6/uL (4.3-5.7); RED CELL DISTRIBUTION WIDTH 13.4 % (11.7-14.4)
[2022-12-09] MEDS: Vancomycin IV 1 GM in SODIUM CHLORIDE 0.9% 250ML 250 ML IV SCH ×2 (04:58→17:20)
[2022-12-09 05:13] LABS: ANION GAP 14.1 mmol/L (8-16); CALCIUM 8.3 mg/dL (8.4-10.2); CREATININE, SERUM 0.93 mg/dL (0.72-1.25); POTASSIUM 4.1 mmol/L (3.5-5.1)
[2022-12-09] MEDS: CARVEDILOL 3.125 MG TAB PO SCH ×2 (08:26→21:58)
[2022-12-09] MEDS: LOSARTAN POTASSIUM 100 MG TAB PO SCH (08:27)
[2022-12-09 09:00] LABS: ANION GAP 13.2 mmol/L (8-16); CALCIUM 8.4 mg/dL (8.4-10.2); CREATININE, SERUM 0.98 mg/dL (0.72-1.25); POTASSIUM 4.2 mmol/L (3.5-5.1)
[2022-12-09] MEDS: VANCOMYCIN 300 ML IV SCH (18:07)
[2022-12-09] MEDS: INSULIN GLARGINE 100 UNITS/ML VIAL SQ SCH (21:54)
[2022-12-10] VITALS: BP 135/75
[2022-12-10] MEDS: HYDROMORPHONE 1MG/1ML INJ IV PRN ×2 (03:09→07:36)
[2022-12-10] MEDS: SODIUM CHLORIDE 0.9% 1000ML 1,000 ML IV SCH ×2 (03:16→11:30)
[2022-12-10 06:02] LABS: BASOPHILS % 0.3 % (0.0-1.0); EOSINOPHILS # (AUTO) 0.3 (0.0-0.4); EOSINOPHILS % 3.2 % (0.0-6.0); HEMATOCRIT 32.8 % (38.2-49.6); LYMPHOCYTES # (AUTO) 1.5 (1.0-3.2); LYMPHOCYTES % 15.1 % (18.0-39.1); MEAN CORPUSCULAR HEMOGLOBIN 26.1 pg (28-32); MEAN CORPUSCULAR HGB CONC 30.5 g/dL (31-35); MEAN CORPUSCULAR VOLUME 85.6 fL (81-99); MONOCYTES # (AUTO) 0.7 (0.2-0.8); MONOCYTES % 6.9 % (4.4-11.3); NEUTROPHILS # (AUTO) 7.4 (2.1-6.9); NEUTROPHILS % 73.3 % (38.7-80.0); PLATELET COUNT 283 x10e3/uL (140-360); RED BLOOD COUNT 3.83 x10e6/uL (4.3-5.7); RED CELL DISTRIBUTION WIDTH 13.4 % (11.7-14.4)
[2022-12-10 06:19] LABS: ANION GAP 13.3 mmol/L (8-16); CALCIUM 8.8 mg/dL (8.4-10.2); CREATININE, SERUM 0.96 mg/dL (0.72-1.25); POTASSIUM 4.3 mmol/L (3.5-5.1)
[2022-12-10] MEDS: VANCOMYCIN 300 ML IV SCH (07:43)
[2022-12-10] MEDS: INSULIN LISPRO 100 UNIT/1 ML 3ML VIAL SQ SCH ×2 (07:48→11:30)
[2022-12-10] MEDS: CARVEDILOL 3.125 MG TAB PO SCH (07:58)
[2022-12-10] MEDS: LOSARTAN POTASSIUM 100 MG TAB PO SCH (07:58)
[2022-12-10 09:10] VITALS: BP 155/80
[2022-12-10] MEDS ORDERED: ACETAMINOPHEN/CODEINE 300MG - 30MG TAB PO PRN (10:30)
[2022-12-10] MEDS ORDERED: TRAMADOL HCL 50 MG TAB PO SCH (11:00)
[2022-12-10] MEDS ORDERED: DOXYCYCLINE HY100 MG PO (11:46)
[2022-12-10] MEDS ORDERED: CEPHALEXIN500 MG PO (11:46)
[2022-12-10] MEDS ORDERED: ULTRAM 50MG50 MG PO (11:46)
[2022-12-10] MEDS ORDERED: TYLENOL325 MG PO (11:46)
[2022-12-10] MEDS ORDERED: ONDANSETRON HCL 4 MG ORAL DISINTEGRATING TAB PO PRN (12:15)
[2022-12-10] MEDS ORDERED: ACETAMINOPHEN-1 EAC4 PO (13:31)
== END 2022-12-10 12:30 | disposition home or self-care (01) | DRG 623 ==
LOC: ER 16:53 → ERHOLD 19:23 → MED/SURG2 20:16
PROVIDERS: ADMIT Internal Medicine; ATTEND Internal Medicine
PROC: 0JBB0ZZ Excision of Perineum Subcutaneous Tissue and Fascia, Open Approach (ICD-10-PCS; 2022-12-08)
PROC: 0VB50ZZ Excision of Scrotum, Open Approach (ICD-10-PCS; principal; 2022-12-08 11:44)
DX: E11.628 Type 2 diabetes mellitus with other skin complications (principal); L02.215 Cutaneous abscess of perineum; E11.65 Type 2 diabetes mellitus with hyperglycemia; N49.2 Inflammatory disorders of scrotum; F17.210 Nicotine dependence, cigarettes, uncomplicated; B96.89 Other specified bacterial agents as the cause of diseases classified elsewhere; Z20.822 Contact with and (suspected) exposure to COVID-19; Z96.659 Presence of unspecified artificial knee joint; Z89.422 Acquired absence of other left toe(s); Z89.421 Acquired absence of other right toe(s)
CPT/HCPCS: 0223U; 36415; 72193; 80048; 80053; 80061; 80202; 80307; 81001; 82550; 82553; 82948; 83036; 83605; 83735; 84484; 85025; 85610; 85730; 87040; 87071; 87075; 87086; 87205; 96372; 99252; 99284; J1170; J1815; J2001; J2250; J2270; J2405; J2543; J7030; J7050; Q9967

== ENCOUNTER 2023-02-01 14:47 | Emergency (ER) | payer SELFPAY ==
[~2023-02-01] VITALS: Ht 182.9 cm; Wt 120.2 kg
[~2023-02-01 14:47] MED LIST changes: +ACETAMINOPHEN-1 EAC4 PO; +CEPHALEXIN500 MG PO; +TYLENOL325 MG PO; +ULTRAM 50MG50 MG PO
[2023-02-01 14:55] VITALS: O2SAT 100
[2023-02-01] MEDS ORDERED: LIDOCAINE HCL 1% LOCAL INJ 20 ML VIAL INJ ONE (15:30)
[2023-02-01] MEDS ORDERED: DOXYCYCLINE HY100 MG PO (15:37)
[2023-02-01] MEDS ORDERED: ACETAMINOPHEN-1 EAC4 PO (15:38)
== END 2023-02-01 15:57 | disposition home or self-care (01) ==
LOC: ER 15:01
DX: L05.01 Pilonidal cyst with abscess (principal); E10.40 Type 1 diabetes mellitus with diabetic neuropathy, unspecified; F41.9 Anxiety disorder, unspecified
CPT/HCPCS: 10061; 99283; J2001